=== PATIENT | female | born 1935 | race Caucasian/White ===

== ENCOUNTER → 2024-05-16 | Outpatient (CLI) | payer MEDICARE, SELFPAY ==
[2024-05-16 13:04] LABS: Collection Type, Urine Clean Catch
[2024-05-16 14:09] LABS: Bacteria,Urine 1+; Bilirubin,Urine Negative (Negative); Blood,Urine Negative (Negative); Color,Urine Yellow (Lt Yel-Yel); Glucose, Urine Negative (Negative); Hyaline Casts,Urine < 1 /hpf (0-1); Ketones,Urine Trace (Negative); Leukocyte Esterase,Urine Negative (Negative); Nitrite,Urine Negative (Negative); PH,Urine 5.5 (5.0-7.0); Protein,Urine Trace (Neg - Trace); RBC,Urine 3 /hpf (0-3); Specific Gravity,Urine 1.025 (1.001-1.035); Squamous Epithelial Cell,Urine 19 /hpf (0-5); Urobilinogen,Urine Negative mg/dL (0.0-1.0); WBC,Urine 2 /hpf (0-5)
[2024-05-16 14:11] LABS: Clarity,Urine Cloudy (Clear/Hazy)
== END | disposition home or self-care (01) ==
LOC: SLDO 12:40
PROVIDERS: PCP Physician Assistant; Referring Provider Physician Assistant; Visit Provider Physician Assistant
DX: N39.0 Urinary tract infection, site not specified (principal)
CPT/HCPCS: 81001; 87086

== ENCOUNTER 2024-05-22 08:42 | Emergency (ER) | payer MEDICARE, SELFPAY ==
[2024-05-22 08:59] VITALS: PULSE 79
[2024-05-22 09:15] VITALS: BP 110/58; PULSE 75; RESP 18; TEMP 35.6; O2SAT 100
--- NOTE | 2024-05-22 09:34 | XR_ITS ---
Examination: AP chest single view Technique one AP portable upright chest single view Exam date and time: May 22, 2024 1012 hours Comparison 03/23/2023 INDICATIONS: Chest pain today. FINDINGS: Significant exenteration interstitial markings at the lung bases, greater at the left lung base Normal heart size Ectatic aorta Prominent osteopenia IMPRESSION: Bibasilar pneumonia, greater left base
--- NOTE | 2024-05-22 09:34 | EKG_ITS ---
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
[2024-05-22 09:57] LABS: Basophils # (Auto) 0.1 Thou/mm3 (0.0-0.2); Basophils % (Auto) 1 % (0-2.5); Eosinophils # (Auto) 0.2 Thou/mm3 (0.0-0.5); Eosinophils % (Auto) 4 % (0-10); Hematocrit 41.2 % (36.0-46.0); Hemoglobin 13.2 g/dL (12.0-16.0); Immature Granulocytes % (Auto) 1 % (0-0); Immature Granulocytes Auto 0.05 Thou/mm3 (0.00-0.00); Lymphocytes % (Auto) 16 % (10-50); Mean Corpuscular Hemoglobin 28.3 pg (25.0-35.0); Mean Corpuscular Volume 88 fL (80-100); Monocytes # (Auto) 0.4 Thou/mm3 (0.0-0.8); Monocytes % (Auto) 7 % (0-12); Neutrophils # (Auto) 4.4 Thou/mm3 (1.8-7.7); Neutrophils % (Auto) 72 % (37-80); Nucleated Red Blood Cell % 0 /100 WBC (0); Platelet Count 229 Thou/mm3 (140-440); RDW Standard Deviation 42.6 fL (36.4-46.3); Red Blood Count 4.66 Miln/mm3 (4.00-5.20); White Blood Count 6.2 Thou/mm3 (3.6-11.0)
[2024-05-22 10:03] VITALS: BP 104/64; PULSE 66; RESP 17; O2SAT 97
--- NOTE | 2024-05-22 10:04 | PD.EDSYNC ---
ED Syncope RME/HPI General Chief Complaint: Syncope / Near Syncope Stated Complaint: SYNCOPE Time Seen by Provider: 05/22/24 09:34 Arrival date/time: 05/22/24 08:42 RME / HPI RME / HPI narrative: 88 year old female with history of Alzheimer's, dementia, hypertension, hyperlipidemia presents to the ED [facility] from [facility] for evaluation of syncopal episode today. Per medics, [facility] staff reported the patient was walking down a hallway when she had a syncopal episode, lasting ~ 1 minutes, and caught by staff. Reported on scene was orthostatic, SBP sitting was 111 and SBP standing was 90. Prehospital BS 170. While in the ED patient does not recall what occurred and has no complaints at this time. Related Data Home Medications ?Medication ?Instructions ?Recorded ?Confirmed VITAMIN D 1 tab PO ##0 05/27/12 donepezil 10 mg tablet 10 mg PO HS 12/22/22 12/22/22 loratadine 10 mg tablet 10 mg PO DAILY 12/22/22 12/22/22 memantine 10 mg tablet 10 mg PO BID 12/22/22 12/22/22 mirtazapine 7.5 mg tablet 7.5 mg PO HS 12/22/22 12/22/22 simvastatin 10 mg tablet 10 mg PO HS 12/22/22 12/22/22 Previous Rx's ?Medication ?Instructions ?Recorded fosfomycin tromethamine 3 gram 1 packet PO Q OTHER DAY 3 doses #1 04/12/22 oral packet ea Allergies Allergy/AdvReac Type Severity Reaction Status Date / Time No Known Allergies Allergy Verified 06/23/23 10:33 Review of Systems Review of Systems Narrative Review of Systems: GEN: No fever, no chills, no weight loss EYES: No discharge, no pain HEENT: No ear pain, no congestion, no sore throat PULM: No shortness of breath, no cough, no congestion CV: +syncopal episode per [facility] staff. No chest pain, no palpitations GI: No nausea, no vomiting, no diarrhea, no pain, no constipation : No frequency, no urgency, no dysuria MUSC/SKEL: No joint pain, no back pain SKIN: No rash NEURO: No weakness, no headache Past Medical History Past Medical History NEUROLOGIC: Positive Neurological Disorders, Dementia and Alzheimer's Disease CARDIAC: Positive Cardiac Disorders, Hypercholesterolemia and Hypertension REPRODUCTIVE: Positive Previous Pregnancies OTHER HISTORY: Positive Falls Social History SMOKING STATUS: Never smoker SECOND HAND EXPOSURE: No ED Exam Narrative Physical exam: GENERAL APPEARANCE: alert and oriented x 4, well-developed, well-nourished, no acute distress HEENT: Normocephalic, atraumatic; pupils equal, round, reactive to light; EOMI; mucous membranes pink, moist; oropharynx clear NECK: Supple LUNGS: CTABL; no wheezes, no rales, no rhonchi HEART: Regular rate, regular rhythm; normal S1, S2; no murmurs ABDOMEN: non distended; normal BS; soft, no tenderness, no guarding, no rebound; no masses, no organomegaly, no hernia BACK: no CVA tenderness EXTREMITIES: atraumatic; no edema NEUROLOGIC: awake; alert and oriented x4; cranial nerves II-XII grossly intact; no focal sensory or motor deficits PSYCHIATRIC: appropriate mood and affect SKIN: warm, dry, normal color; no rashes Course Quality Measures none Orders Category Date Time Status Support Services Coordinator NOW Care 05/22/24 09:34 Completed EKG (ED ONLY) *Do not use* NOW Care 05/22/24 09:34 Completed Orthostatic Vitals NOW Care 05/22/24 09:[address] head/brain wo con Stat Exams 05/22/24 12:29 Completed EKG (ED Only) Stat Exams 05/22/24 09:34 Draft XR chest 1V portable Stat Exams 05/22/24 09:34 Completed B-Type Natriuretic Peptide Stat Lab 05/22/24 09:48 Completed CBC Stat Lab 05/22/24 09:48 Completed Comprehensive Metabolic Panel Stat Lab 05/22/24 09:48 Completed Lipase Stat Lab 05/22/24 09:48 Completed Magnesium Stat Lab 05/22/24 09:48 Completed Partial Thromboplastin Time Stat Lab 05/22/24 09:48 Completed Prothrombin Time with INR Stat Lab 05/22/24 09:48 Completed Troponin I Stat Lab 05/22/24 09:48 Completed KCL 10% Liq UDC 15 ML Med 05/22/24 10:23 Discontinued 40 meq PO X1 ONE Vital Signs Vital signs: Vital Signs Temperature 96.0 F L 05/22/24 09:15 Pulse Rate 75 05/22/24 09:15 Respiratory Rate 18 05/22/24 09:15 Blood Pressure 110/58 L 05/22/24 09:15 Pulse Oximetry (%) 100 05/22/24 09:15 Oxygen Delivery Method Nasal Cannula 05/22/24 09:15 Oxygen Flow Rate 2 05/22/24 09:15 Pulse ox is 100% on 2L nasal cannula which is adequate. Syncope MDM Narrative MDM Narrative:: Katy Mcclure am scribing for and in the presence of Dr. Alan. Patient data External records reviewed:: [facility] previous records (I reviewed admission from 12/22/2022 through 12/26/2022) and EMS form Clinical information provided by:: patient and EMS Social determinants that could affect healthcare access:: housing ([facility] resident ) Patient has the following chronic illnesses:: Alzheimer's, dementia, hypertension, hyperlipidemia How is presenting disease/condition affected by chronic disease/condition?: exacerbated by Evaluation data The following diagnostics were reviewed and interpreted by me:: lab results, radiology exam(s) and EKG tracing(s) (Atrial fibrillation, rate 74, no acute ST or T-wave changes. ) Lab and/or radiology exams considered but not ordered:: None Interpretation Summary: Ordering Physician: Rhonda Alan MD Date of Service: 05/22/24 Procedure(s): XR chest 1V portable Accession Number(s): [id number] cc: Aaron Duval MD; Rhonda Alan MD~ Examination: AP chest single view Technique one AP portable upright chest single view Exam date and time: May 22, 2024 1012 hours Comparison 03/23/2023 INDICATIONS: Chest pain today. FINDINGS: Significant exenteration interstitial markings at the lung bases, greater at the left lung base Normal heart size Ectatic aorta Prominent osteopenia IMPRESSION: Bibasilar pneumonia, greater left base Dictated By: Aaron Duval MD Signed By: <Electronically signed by Aaron Duval MD in OV> 05/22/24 1059 Ordering Physician: Rhonda Alan MD Date of Service: 05/22/24 Procedure(s): CT head/brain wo con Accession Number(s): [id number] cc: Aaron Duval MD; Rhonda Alan MD; James Price MD~ Examination: CT brain head without contrast. 2-D sagittal coronal reconstructions Date and time of exam:May 22, 2024 1235 hours Comparison April 11, 2022 INDICATIONS: Onset syncopal episode today CTDI: vol (mGy):46.5 DLP: (mGycm):890 Technique: Multiple CT axial sections of the brain have been obtained, 5 mm slice thickness. Contrast has not been administered. 2-D sagittal, coronal reconstructions have been obtained Low dose protocols were performed. One or more of the following dose reduction techniques were used; automated exposure control, adjustment of the mA and/or KV according to patient size, use of iterative reconstruction technique. Findings: No significant ventricular enlargement. Significant right maxillary sinusitis Stable small calcification left frontal convexity Intra-axial or extra-axial hemorrhage density is not seen. No mass effect or midline shift Basal cisterns are not remarkable. Fourth ventricle is midline. Cranial vault intact. Impression: Negative for acute hemorrhage, mass effect or midline shift As clinically warranted, if syncopal episodes persist, consider brain MRI without contrast follow-up Dictated By: Aaron Duval MD Signed By: <Electronically signed by Aaron Duval MD in OV> 05/22/24 1318 Medications / Prescriptions Medications or Prescriptions considered but not ordered:: None Medication administrations:: Medication Administration History Discontinued Medications Potassium Chloride (Potassium Chloride 10% 20 Meq/15 Ml Udc) 40 meq PO X1 ONE Stop: 05/22/24 10:24 Last Admin: 05/22/24 11:25 Dose: 40 meq Documented By: MP See above Consultations Consultation(s) initiated? (list below): No Diagnosis Syncope Differential Diagnosis: syncope due to orthostatic hypotension, vasovagal syncope, pulmonary embolism, dehydration and other (UTI, pneumonia, viral illness) Most likely diagnosis given after review of the tests above:: Syncope Hypokalemia Admission Indicated Admission indicated?: not indicated Admission Request Was there a request for admission?: No Disposition Plan Disposition Plan: Discharge Discharge Attestation Discharge Attestation: The patient and all family members were given an opportunity to ask questions and understood the discharge instructions. Discharge instructions specifically effects, indications for sooner follow up or return to the emergency department, and the expected course of current diagnosis. Patient condition: Stable Discharge Plan Plan Patient Disposition: HOME (Self Care) Prescriptions/Referrals Prescriptions/Med Rec: No Action VITAMIN D 1 tab PO Qty: 0 fosfomycin tromethamine 3 gram packet 1 packet PO Q OTHER DAY Qty: 1 0RF donepezil 10 mg tablet 10 mg PO HS Patient Comments: TAKE 1 TABLET BY MOUTH ONCE DAILY IN THE EVENING simvastatin 10 mg tablet 10 mg PO HS Patient Comments: TAKE 1 TABLET BY MOUTH AT BEDTIME loratadine 10 mg tablet 10 mg PO DAILY Patient Comments: TAKE 1 TABLET BY MOUTH ONCE DAILY NEEDED FOR CONGESTION memantine 10 mg tablet 10 mg PO BID Patient Comments: TAKE 1 TABLET BY MOUTH TWICE DAILY mirtazapine 7.5 mg tablet 7.5 mg PO HS Patient Comments: TAKE 1 & 1/2 (ONE & ONE-HALF) TABLETS BY MOUTH ONCE DAILY AT BEDTIME Referrals: James Price MD [Primary Care Provider] - In 1 week Problem List Clinical Impression: Syncope, Hypokalemia Patient/Caregiver Discharge Instructions Education Materials: ED Hypokalemia, ED Fainting, Uncertain Cause Print Language: Togolese Stand Alone Forms: Maritza Award Info., Patient Portal Info Letter
[2024-05-22 10:12] LABS: B-Type Natriuretic Peptide 195 pg/mL (0-100); Partial Thromboplastin Time 23.2 Seconds (22.0-36.0); Prothrombin Time 10.9 Seconds (9.0-12.2)
[2024-05-22 10:15] LABS: Alanine Aminotransferase 11 U/L (10-49); Albumin, Serum 4.6 gm/dL (3.4-4.8); Alkaline Phosphatase 137 U/L (46-116); Anion Gap 8 (7-16); Aspartate Amino Transferase 16 U/L (0-34); BUN/Creatinine Ratio 13 Ratio (12-20); Bilirubin,Total 0.7 mg/dL (0.3-1.2); Blood Urea Nitrogen 18 mg/dL (9-23); Calcium 9.6 mg/dL (8.3-10.6); Calcium (Corrected) 9.6 mg/dL (8.5-10.1); Carbon Dioxide 32.3 mMol/L (20.0-31.0); Chloride 104 mMol/L (98-107); Creatinine (Component) 1.4 mg/dL (0.6-1.3); Globulin 2.3 gm/dL (2.3-3.5); Glucose 120 mg/dL (74-106); Lipase 49 U/L (12-53); Magnesium 2.5 mg/dL (1.6-2.6); Osmolality,Calculated 289 (275-295); Sodium 144 mMol/L (136-145); Total Protein 6.9 gm/dL (5.7-8.2); Troponin I < 0.020 ng/mL (0.0-0.045); eGFR 36 See Note
[2024-05-22] MEDS: POTASSIUM CHLORIDE 10% 20 MEQ/15 ML UDC 40 MEQ PO (11:25)
[2024-05-22 11:30] VITALS: BP 127/83; PULSE 72; RESP 17; TEMP 37; O2SAT 95
[2024-05-22 12:14] VITALS: BP 116/66; BP 123/96; BP 132/70; PULSE 66; PULSE 80; PULSE 98
--- NOTE | 2024-05-22 12:29 | XR_ITS ---
Examination: CT brain head without contrast. 2-D sagittal coronal reconstructions Date and time of exam:May 22, 2024 1235 hours Comparison April 11, 2022 INDICATIONS: Onset syncopal episode today CTDI: vol (mGy):46.5 DLP: (mGycm):890 Technique: Multiple CT axial sections of the brain have been obtained, 5 mm slice thickness. Contrast has not been administered. 2-D sagittal, coronal reconstructions have been obtained Low dose protocols were performed. One or more of the following dose reduction techniques were used; automated exposure control, adjustment of the mA and/or KV according to patient size, use of iterative reconstruction technique. Findings: No significant ventricular enlargement. Significant right maxillary sinusitis Stable small calcification left frontal convexity Intra-axial or extra-axial hemorrhage density is not seen. No mass effect or midline shift Basal cisterns are not remarkable. Fourth ventricle is midline. Cranial vault intact. Impression: Negative for acute hemorrhage, mass effect or midline shift As clinically warranted, if syncopal episodes persist, consider brain MRI without contrast follow-up
[2024-05-22 14:16] VITALS: BMI 32.3
== END 2024-05-22 14:19 | disposition home or self-care (01) ==
PROVIDERS: Emergency Provider Emergency Medicine; PCP Family Medicine
DX: R55 Syncope and collapse (principal); E87.6 Hypokalemia; I10 Essential (primary) hypertension; E78.5 Hyperlipidemia, unspecified
CPT/HCPCS: 36415; 70450; 71045; 80053; 83690; 83735; 83880; 84484; 85025; 85610; 85730; 93005; 99284; A9270

== ENCOUNTER 2025-02-04 18:55 | Emergency (ER) | payer MEDICARE, SELFPAY ==
[2025-02-04 18:56] VITALS: BP 134/83; PULSE 89; RESP 18; TEMP 36.6; O2SAT 97
--- NOTE | 2025-02-04 19:15 | PD.EDADULT ---
ED General RME/HPI General Chief complaint: Abdominal Pain Stated complaint: ABD PAIN Time Seen by Provider: 02/04/25 19:14 Arrival date/time: 02/04/25 18:55 CC: Abdominal pain HPI patient presents to the ER via EMS from a care facility where it was reported that the patient has abdominal pain. Recent past medical history includes UTI and on the Macrobid for the UTI. Patient is significantly demented and is unable to answer any questions no paperwork accompanied the patient from the assisted care facility EMS report and not sure if family is coming but they have been notified. Patient currently denies any pain. Related Data Home Medications ?Medication ?Instructions ?Recorded ?Confirmed VITAMIN D 1 tab PO ##0 05/27/12 donepezil 10 mg tablet 10 mg PO HS 12/22/22 12/22/22 loratadine 10 mg tablet 10 mg PO DAILY 12/22/22 12/22/22 memantine 10 mg tablet 10 mg PO BID 12/22/22 12/22/22 mirtazapine 7.5 mg tablet 7.5 mg PO HS 12/22/22 12/22/22 simvastatin 10 mg tablet 10 mg PO HS 12/22/22 12/22/22 Previous Rx's ?Medication ?Instructions ?Recorded fosfomycin tromethamine 3 gram 1 packet PO Q OTHER DAY 3 doses #1 04/12/22 oral packet ea Allergies Allergy/AdvReac Type Severity Reaction Status Date / Time No Known Allergies Allergy Verified 06/23/23 10:33 Review of Systems Review of Systems ROS Unobtainable: unobtainable due to mental status Past Medical History Past Medical History NEUROLOGIC: Positive Neurological Disorders, Dementia and Alzheimer's Disease; Negative Seizures CARDIAC: Positive Cardiac Disorders, Hypercholesterolemia and Hypertension; Negative Congestive Heart Failure RESPIRATORY: Negative Chronic Obstructive Pulmonary Disease (COPD) GASTROINTESTINAL: Negative Gastrointestinal Disorders GENITOURINARY: Negative Genitourinary Disorders or Renal Disease REPRODUCTIVE: Positive Previous Pregnancies; Negative Endometriosis or Pelvic Inflammatory Disease MUSCULOSKELETAL: Negative Musculoskeletal Disorders ENDOCRINE: Negative Endocrine Disorders, Diabetes Mellitus Type 1 or Diabetes Mellitus Type 2 HEMATOLOGIC: Negative Blood Disorders OTHER HISTORY: Positive Falls; Negative Autoimmune Disease, Down Syndrome, Developmental Delay, Blood Transfusions, Anesthesia Reactions or Cancer Social History SMOKING STATUS: Never smoker SECOND HAND EXPOSURE: No ED Exam Narrative Physical exam: [General: Frail partially deconditioned not in any acute distress Head normocephalic HEENT: Eyes pupils are PERRLA EOMs are intact mouth pink moist membranes uvula is midline swallow symmetrical phonation is normal all of the subsystems of HEENT are within acceptable limits Neck is supple nontender Chest equal chest rise nontender to palpation Respiratory: Clear to auscultation no wheezes crackles or rubs CV: Rate rhythm is regular no murmurs rubs or clicks Abdomen is soft nontender in all quadrants, no masses positive bowel sounds all 4 quadrants Back: No CVA tenderness no spinous process tenderness from cervical spine thoracic and lumbar spine Skin: Intact no petechiae rash induration ulceration or crepitus Extremities: Moving all extremity against resistance cap refill less than 2 seconds neurosensory intact Neuro: Awake alert oriented x1, self, Glascow coma 15 no focal deficits] Course Quality Measures none Orders Category Date Time Status In and Out Catheter X1 Care 02/04/25 19:[address] abdomen pelvis wo con Stat Exams 02/04/25 20:45 Completed CBC Stat Lab 02/04/25 19:44 Completed CMP [Comprehensive Metabolic Panel] Stat Lab 02/04/25 19:44 Completed Urinalysis, C/S if Indicated Stat Lab 02/04/25 19:45 Completed Urine Culture Stat Lab 02/04/25 19:45 Received Vital Signs Vital signs: Vital Signs Temperature 97.8 F 02/04/25 18:56 Pulse Rate 89 02/04/25 18:56 Respiratory Rate 18 02/04/25 18:56 Blood Pressure 134/83 H 02/04/25 18:56 Pulse Oximetry (%) 97 02/04/25 18:56 Oxygen Delivery Method Room Air 02/04/25 18:56 Discharge Plan Plan Patient Disposition: HOME (Self Care) Patient condition on transfer: Stable Prescriptions/Referrals Prescriptions/Med Rec: No Action VITAMIN D 1 tab PO Qty: 0 fosfomycin tromethamine 3 gram packet 1 packet PO Q OTHER DAY Qty: 1 0RF donepezil 10 mg tablet 10 mg PO HS Patient Comments: TAKE 1 TABLET BY MOUTH ONCE DAILY IN THE EVENING simvastatin 10 mg tablet 10 mg PO HS Patient Comments: TAKE 1 TABLET BY MOUTH AT BEDTIME loratadine 10 mg tablet 10 mg PO DAILY Patient Comments: TAKE 1 TABLET BY MOUTH ONCE DAILY NEEDED FOR CONGESTION memantine 10 mg tablet 10 mg PO BID Patient Comments: TAKE 1 TABLET BY MOUTH TWICE DAILY mirtazapine 7.5 mg tablet 7.5 mg PO HS Patient Comments: TAKE 1 & 1/2 (ONE & ONE-HALF) TABLETS BY MOUTH ONCE DAILY AT BEDTIME Referrals: James Price MD [Primary Care Provider, Family Practice] - In 1 week Problem List Clinical Impression: Constipation Patient/Caregiver Discharge Instructions Education Materials: ED Constipation (Adult) Print Language: Chilean Stand Alone Forms: Maritza Award Info., Work/School Release, Patient Portal Info Letter PA/BRENDA Supervising Physician PA/ED[employer] Supervising Physician: Lui Shukla ENP MDM Clinical Information Provided by: patient and EMS Medical Records reviewed [facility] and EMS Meds/Rx considered, not ordered None Labs/Rad/Tests considered, not ordered None Chronic Illness/Social Conditions Explain: Dementia Labs Labs: interpreted by me Lab(s) Interpretation(s): Laboratory results show no acute leukocytosis anemia thrombocytopenia CMP shows a mildly decreased potassium at 2.9 glucose at 119 no other electrolyte imbalances. Urine 3+ Co. teens 4+ bacteria leukocyte esterase and nitrite negative. Imaging Imaging interpretation: interpreted by me Imaging Interpretation(s): CT shows gastric hernia renal cysts umbilical fat hernia and a large amount of stool in the rectal vault resulting in proctitis. Diagnosis Differential Diagnosis ED Complaint MDM: Proctitis constipation obstipation
[2025-02-04 19:18] VITALS: PULSE 76; RESP 16; O2SAT 97; BMI 23.4
[2025-02-04 19:50] VITALS: BP 134/108; PULSE 74; RESP 19; TEMP 36.6; O2SAT 100
[2025-02-04 20:09] LABS: Basophils # (Auto) 0.1 Thou/mm3 (0.0-0.2); Basophils % (Auto) 1 % (0-2.5); Eosinophils # (Auto) 0.2 Thou/mm3 (0.0-0.5); Eosinophils % (Auto) 3 % (0-10); Hematocrit 43.6 % (36.0-46.0); Hemoglobin 14.4 g/dL (12.0-16.0); Immature Granulocytes Auto 0.05 Thou/mm3 (0.00-0.00); Lymphocytes # (Auto) 1.6 Thou/mm3 (1.0-4.8); Lymphocytes % (Auto) 23 % (10-50); Mean Corpuscular HGB Conc 33.0 g/dl (31.0-37.0); Mean Corpuscular Hemoglobin 30.1 pg (25.0-35.0); Mean Corpuscular Volume 91 fL (80-100); Monocytes # (Auto) 0.6 Thou/mm3 (0.0-0.8); Monocytes % (Auto) 9 % (0-12); Neutrophils # (Auto) 4.4 Thou/mm3 (1.8-7.7); Neutrophils % (Auto) 64 % (37-80); Nucleated Red Blood Cell # 0.00 Thou/mm3 (0.00-0.00); Nucleated Red Blood Cell % 0 /100 WBC (0); Platelet Count 143 Thou/mm3 (140-440); RDW Standard Deviation 48.9 fL (36.4-46.3); Red Blood Count 4.79 Miln/mm3 (4.00-5.20); White Blood Count 6.9 Thou/mm3 (3.6-11.0)
[2025-02-04 20:10] LABS: Collection Type, Urine Catheter; RBC,Urine 0 /hpf (0-3)
--- NOTE | 2025-02-04 20:12 | PC.NURSE ---
PT DAUGHTER STATED THAT MOTHER HAS FALLEN TWICE IN THE PAST 3 WEEKS. MAMI BRADSHAW MADE AWARE
[2025-02-04 20:22] LABS: Bacteria,Urine 4+; Bilirubin,Urine Negative (Negative); Blood,Urine Negative (Negative); Clarity,Urine Clear (Clear/Hazy); Color,Urine Yellow (Lt Yel-Yel); Glucose, Urine Negative (Negative); Ketones,Urine 3+ (Negative); Leukocyte Esterase,Urine Negative (Negative); Nitrite,Urine Negative (Negative); PH,Urine 5.5 (5.0-7.0); Protein,Urine Negative (Neg - Trace); Specific Gravity,Urine 1.026 (1.001-1.035); Squamous Epithelial Cell,Urine 1 /hpf (0-5); Urobilinogen,Urine 3.0 mg/dL (0.0-1.0); WBC,Urine 1 /hpf (0-5)
[2025-02-04 20:27] LABS: Culture Indicated,Urine Yes
[2025-02-04 20:29] LABS: Alanine Aminotransferase 13 U/L (10-49); Albumin, Serum 4.4 gm/dL (3.4-4.8); Albumin/Globulin Ratio 2.1 (1.2-2.2); Alkaline Phosphatase 81 U/L (46-116); Anion Gap 16 (7-16); Aspartate Amino Transferase 21 U/L (0-34); BUN/Creatinine Ratio 12 Ratio (12-20); Bilirubin,Total 2.2 mg/dL (0.3-1.2); Blood Urea Nitrogen 12 mg/dL (9-23); Calcium 10.6 mg/dL (8.3-10.6); Calcium (Corrected) 10.6 mg/dL (8.5-10.1); Carbon Dioxide 26.1 mMol/L (20.0-31.0); Chloride 103 mMol/L (98-107); Creatinine (Component) 1.0 mg/dL (0.6-1.3); Estimated Creatinine Clearance 35.0 mL/min (>60); Globulin 2.1 gm/dL (2.3-3.5); Glucose 118 mg/dL (74-106); Osmolality,Calculated 289 (275-295); Potassium 2.9 mMol/L (3.4-5.1); Sodium 145 mMol/L (136-145); Total Protein 6.5 gm/dL (5.7-8.2); eGFR 54 See Note
--- NOTE | 2025-02-04 20:45 | XR_ITS ---
Examination: CT abdomen and pelvis without contrast. Coronal 3-D reconstructions. Sagittal 2-D reconstructions. Date and time of exam:February 04, 2025, 10:16 PM Indications: Intermittent abdominal pain today Comparison December 25, 2022 CTDI: vol (mGy): 9.13 DLP: (mGycm): 445 Technique: Axial images of the abdomen have been obtained, 3 mm slice thickness Intravenous contrast material has not been administered. Low dose protocols were performed. One or more of the following dose reduction techniques were used; automated exposure control, adjustment of the mA and/or KV according to patient size, use of iterative reconstruction technique. Findings: Large retrocardiac gastric hernia Stable anterior left renal cyst compared to 2022 Absent gallbladder No splenic pancreatic or adrenal mass Bilateral renal cysts, the largest left kidney 7.2 cm Abdominal aortic calcification no aneurysmal dilatation No bowel obstruction 19 mm fat-containing umbilical hernia Normal appendix No bowel obstruction No diverticulitis No pelvic mass Large amounts of stool in the rectum with thickening of the rectal wall Bladder intact Severe osteopenia, grade 1 anterolisthesis L4 on L5 Diffuse moderate to advanced lumbar degenerative disc disease There is deformity of the fifth sacral segment which may relate to patient motion Impression: Large retrocardiac gastric hernia Bilateral renal cysts, the largest left kidney 7.2 cm Small fat-containing umbilical hernia. Normal appendix. No bowel obstruction. Large amounts of stool in the rectum with thickening of the rectal wall, likely proctitis but clinical correlation advised, recommend direct inspection as clinically warranted
[2025-02-04 21:46] VITALS: BP 160/72; PULSE 74; RESP 19; O2SAT 96
--- NOTE | 2025-02-04 21:55 | PC.NURSE ---
MADE [address] FOR PTS PELVIS CT NO ANSWER
[2025-02-05 00:25] VITALS: BP 161/74; PULSE 87; RESP 19; TEMP 36.9; O2SAT 99
== END 2025-02-05 00:27 | disposition home or self-care (01) ==
PROVIDERS: Registered Nurse General Practice; Emergency Provider Emergency Medicine; PCP Family Medicine
DX: K59.00 Constipation, unspecified (principal); K46.9 Unspecified abdominal hernia without obstruction or gangrene; N28.1 Cyst of kidney, acquired; R54 Age-related physical debility
CPT/HCPCS: 51701; 36415; 74176; 80053; 81001; 85025; 87086; 99284